=== PATIENT | male | born 1975 | race Caucasian/White ===

== ENCOUNTER → 2020-10-04 13:32 | Outpatient (CLI) | payer SELFPAY ==
[2020-10-04 15:23] LABS: Liquefaction Semen NO (YES); PH Semen 8.5 (7-8); Sperm Morphology 50 %ABNORM (0-30); Sperm Motility 50% % Motile
== END ==
PROVIDERS: Referring Provider Neuromusculoskeletal Medicine & OMM; Visit Provider Neuromusculoskeletal Medicine & OMM
DX: N46.9 Male infertility, unspecified (principal)
CPT/HCPCS: 89320